=== PATIENT | female | born 1935 | race Caucasian/White ===

== ENCOUNTER 2021-06-19 15:37 | Emergency (ER) | payer MEDICARE, BC ==
[2021-06-19] MEDS ORDERED: Sodium Chloride 0.9% 10 ML Syringe FLUSH PRN (16:15)
--- NOTE | 2021-06-19 16:16 | EDM.PDOC ---
ED HPI GENERAL MEDICAL PROBLEM - General Chief Complaint: Cardiovascular Problem Stated Complaint: shortness of breath Time Seen by Provider: 06/19/21 16:00 Source of Information: Reports: Patient, EMS, Family History Limitations: Reports: No Limitations - History of Present Illness INITIAL COMMENTS - FREE TEXT/NARRATIVE: This patient does have a quite extensive history of congestive heart failure as well as pacemaker and TAVR placement. Over the past couple of weeks she has noticed that she gets more short of breath with physical exertion. She was seen by her primary care provider who discontinued her Lasix and her lisinopril due to some mild elevations in her kidney function. She does have a history congestive heart failure coronary artery disease and TAVR. She had a echocardiogram completed a couple of days prior to her ER visit and was told that she had a mild small pericardial effusion which is new since her surgical placement of her valve in August. She is supposed to have a repeat echocardiogram in 2 to 3 weeks. Tonight she is just getting more short of breath with any physical exertion. She has fatigue. No fever no chills. No cough or congestion. No syncope or palpitations. No pain in her chest. No abdominal pain nausea or vomiting. No fever no chills. No hematuria dysuria urinary frequency. No black tarry stools. The only recent change in her medication has been the discontinuation of her Lasix and her lisinopril. - Related Data Allergies Allergy/AdvReac Type Severity Reaction Status Date / Time No Known Allergies Allergy Verified 06/19/21 15:39 Home Meds: Home Meds Carboxymethylcellulose Sodium [Refresh Tears] 1 drop .ROUTE ASDIRECTED PRN 02/22/17 [History] Insulin Aspart [NovoLOG] 8 unit SQ TIDAC 02/22/17 [History] Metoprolol Tartrate 25 mg PO BID 02/22/17 [History] Simvastatin 1 tab PO BEDTIME 02/22/17 [History] Triamcinolone Acetonide [Triamcinolone Acetonide 0.1% Crm] 1 each TOP BID 02/22/17 [History] Vit A/Vit C/Vit E/Zinc/Copper [Preservision] 1 tab PO DAILY 02/22/17 [History] Acetaminophen [Acetaminophen Extra Strength] 2 tab PO TID MDD 4000 mg 06/19/21 [History] Alendronate Sodium [Fosamax] 1 tab PO Q7D 06/19/21 [History] Aspirin [Aspirin EC] 1 tab PO DAILY 06/19/21 [History] Furosemide [Lasix] 1 tab PO DAILY 06/19/21 [History] Insulin Glargine,Hum.Rec.Anlog [Basaglar Kwikpen U-100] 30 units SQ DAILY 06/19/21 [History] Mirtazapine [Remeron] 0.5 tab PO DAILY 06/19/21 [History] Pantoprazole [ProTONIX] 1 tab PO BID 06/19/21 [History] estradioL [Estradiol] 1 applic TOP DAILY 06/19/21 [History] lisinopriL [Lisinopril] 1 tab PO DAILY 06/19/21 [History] Past Medical History HEENT History: Reports: Glaucoma, Other (See Below) Other HEENT History: dry eyes Cardiovascular History: Reports: Heart Murmur, High Cholesterol, Hypertension, SOB on Exertion Respiratory History: Reports: SOB Gastrointestinal History: Reports: GERD Genitourinary History: Reports: Renal Calculus Musculoskeletal History: Reports: Arthritis, Back Pain, Chronic, Osteoporosis Neurological History: Reports: TIA Other Neuro History: TIA 20 years ago Endocrine/Metabolic History: Reports: Obesity/BMI 30+ Hematologic History: Reports: Anemia, Blood Transfusion(s) Immunologic History: Reports: None Oncologic (Cancer) History: Reports: None Dermatologic History: Reports: Eczema - Past Surgical History HEENT Surgical History: Reports: Cataract Surgery, Other (See Below) Other HEENT Surgeries/Procedures: cataracts OU. Lazer sergery for pressure in eyes Cardiovascular Surgical History: Reports: None Respiratory Surgical History: Reports: None GI Surgical History: Reports: None, Cholecystectomy Female Surgical History: Reports: Other (See Below) Other Female Surgeries/Procedures: all vaginal births x 6 Musculoskeletal Surgical History: Reports: Carpal Tunnel, Knee Replacement Social & Family History - Caffeine Use Caffeine Use: Reports: Soda ED ROS GENERAL - Review of Systems Review Of Systems: Comprehensive ROS is negative, except as noted in HPI. ED EXAM, GENERAL - Physical Exam Exam: See Below Exam Limited By: No Limitations General Appearance: Alert, WD/WN, No Apparent Distress, Obese Eye Exam: Bilateral Eye: EOMI, PERRL Head: Atraumatic, Normocephalic Neck: Normal Inspection, Supple Respiratory/Chest: No Respiratory Distress, No Accessory Muscle Use, Chest Non- Tender, Crackles (Fine bibasilar crackles more on the left than the right.), Rales (Rales on the left). No: Rhonchi, Wheezing, Accessory Muscle Use, Retractions Cardiovascular: Normal Peripheral Pulses, Regular Rate, Rhythm, Other (She has quite distant muffled heart tones. Unable to identify murmur due to the distant muffled heart tones.) Peripheral Pulses: 2+: Radial (L), Radial (R), Posterior Tibial (L), Posterior Tibial (R), Dorsalis Pedis (L), Dorsalis Pedis (R) GI/Abdominal: Normal Bowel Sounds, Soft, Non-Tender (Female) Exam: Deferred Rectal (Female) Exam: Deferred Back Exam: Normal Inspection Extremities: Normal Inspection, Normal Range of Motion, Pedal Edema (1+ pitting edema bilaterally equal) Neurological: Alert, Oriented, Normal Cognition, Normal Gait, No Motor/Sensory Deficits Psychiatric: Normal Affect, Normal Mood Skin Exam: Warm, Dry, Intact, Normal Color Lymphatic: No Adenopathy Course - Vital Signs Last Recorded V/S: Last Vital Signs Temp 98.6 F 06/19/21 16:00 Pulse 79 06/19/21 20:51 Resp 14 06/19/21 20:51 BP 156/75 H 06/19/21 20:51 Pulse Ox 96 06/19/21 20:51 - Orders/Labs/Meds Labs: Laboratory Tests 06/19/21 06/19/21 06/19/21 Range/Units 16:50 16:50 16:50 WBC 10.9 H (4.0-10.2) K/uL RBC 3.86 (3.77-5.09) M/uL Hgb 11.0 L (11.7-15.5) g/dL Hct 35.0 (34.0-46.0) % MCV 90.7 (84.0-98.0) fL MCH 28.5 (28.2-33.3) pg MCHC 31.4 L (31.7-36.0) g/dL RDW 12.9 (11.2-14.1) % Plt Count 373 H (150-350) K/uL Neut % (Auto) 72.7 (45.0-80.0) % Lymph % (Auto) 14.2 (10.0-50.0) % [place] % (Auto) 11.1 (2.0-14.0) % Eos % (Auto) 1.7 (0.0-5.0) % Baso % (Auto) 0.3 (0.0-2.0) % Neut # (Auto) 7.90 H (1.40-7.00) K/uL Lymph # (Auto) 1.54 (0.50-3.50) K/uL [place] # (Auto) 1.21 H (0.00-1.00) K/uL Eos # (Auto) 0.18 (0.00-0.50) K/uL Baso # (Auto) 0.03 (0.00-0.20) K/uL PT 10.7 (9.5-12.0) SEC INR 1.1 APTT 30.5 (24.5-32.8) SEC D-Dimer, Quantitative (0-400) ng/mL Sodium 140 (136-145) mmol/L Potassium 5.1 (3.5-5.1) mmol/L Chloride 103 (98-107) mmol/L Carbon Dioxide 25.4 (21.0-32.0) mmol/L Anion Gap 11.6 (7-15) meq/L BUN 33 H (7-18) mg/dL Creatinine 1.59 H (0.51-1.17) mg/dL Est Cr Clr Drug Dosing 21.01 mL/min Estimated GFR (MDRD) 31 mL/min Glucose 195 H (70-99) mg/dL Lactic Acid (0.4-2.0) mmol/L Calcium 9.2 (8.5-10.1) mg/dL Total Bilirubin 0.6 (0.2-1.0) mg/dL AST 17 (15-37) U/L ALT 15 (12-78) U/L Alkaline Phosphatase 198 H (46-116) IU/L Troponin I High Sens 18 (<=51) ng/L C-Reactive Protein 26.7 H (<=0.9) mg/dL NT-Pro-B Natriuret Pep 2251 H (0-125) pg/mL Total Protein 7.7 (6.4-8.2) g/dL Albumin 2.8 L (3.4-5.0) g/dL Specimen Type Urine Color Urine Appearance Urine pH (5.0-9.0) Ur Specific [place] (1.005-1.030) Urine Protein (NEGATIVE) mg/dL Urine Glucose (UA) (NEGATIVE) mg/dL Urine Ketones (NEGATIVE) mg/dL Urine Occult Blood (NEGATIVE) Urine Nitrite (NEGATIVE) Urine Bilirubin (NEGATIVE) Urine Urobilinogen (0.2-1.0) E.U./dL Ur Leukocyte Esterase (NEGATIVE) U Hyaline Cast (Auto) Urine RBC /HPF Urine WBC /HPF Ur Epithelial Cells /LPF Urine Bacteria (NONE TO FEW) /HPF Granular Casts (Auto) Urine Mucus (NEGATIVE) /LPF 06/19/21 06/19/21 06/19/21 Range/Units 16:50 16:50 18:55 WBC (4.0-10.2) K/uL RBC (3.77-5.09) M/uL Hgb (11.7-15.5) g/dL Hct (34.0-46.0) % MCV (84.0-98.0) fL MCH (28.2-33.3) pg MCHC (31.7-36.0) g/dL RDW (11.2-14.1) % Plt Count (150-350) K/uL Neut % (Auto) (45.0-80.0) % Lymph % (Auto) (10.0-50.0) % [place] % (Auto) (2.0-14.0) % Eos % (Auto) (0.0-5.0) % Baso % (Auto) (0.0-2.0) % Neut # (Auto) (1.40-7.00) K/uL Lymph # (Auto) (0.50-3.50) K/uL [place] # (Auto) (0.00-1.00) K/uL Eos # (Auto) (0.00-0.50) K/uL Baso # (Auto) (0.00-0.20) K/uL PT (9.5-12.0) SEC INR APTT (24.5-32.8) SEC D-Dimer, Quantitative 4590 H (0-400) ng/mL Sodium (136-145) mmol/L Potassium (3.5-5.1) mmol/L Chloride (98-107) mmol/L Carbon Dioxide (21.0-32.0) mmol/L Anion Gap (7-15) meq/L BUN (7-18) mg/dL Creatinine (0.51-1.17) mg/dL Est Cr Clr Drug Dosing mL/min Estimated GFR (MDRD) mL/min Glucose (70-99) mg/dL Lactic Acid 2.0 (0.4-2.0) mmol/L Calcium (8.5-10.1) mg/dL Total Bilirubin (0.2-1.0) mg/dL AST (15-37) U/L ALT (12-78) U/L Alkaline Phosphatase (46-116) IU/L Troponin I High Sens (<=51) ng/L C-Reactive Protein (<=0.9) mg/dL NT-Pro-B Natriuret Pep (0-125) pg/mL Total Protein (6.4-8.2) g/dL Albumin (3.4-5.0) g/dL Specimen Type Urinvoid Urine Color Dark yellow Urine Appearance Slightly cloudy Urine pH 5.5 (5.0-9.0) Ur Specific [place] 1.025 (1.005-1.030) Urine Protein 100 H (NEGATIVE) mg/dL Urine Glucose (UA) Negative (NEGATIVE) mg/dL Urine Ketones Trace H (NEGATIVE) mg/dL Urine Occult Blood Negative (NEGATIVE) Urine Nitrite Negative (NEGATIVE) Urine Bilirubin Small H (NEGATIVE) Urine Urobilinogen 1.0 (0.2-1.0) E.U./dL Ur Leukocyte Esterase Trace H (NEGATIVE) U Hyaline Cast (Auto) Few Urine RBC 0-5 /HPF Urine WBC 5-10 H /HPF Ur Epithelial Cells Moderate H /LPF Urine Bacteria Moderate H (NONE TO FEW) /HPF Granular Casts (Auto) Occasional Urine Mucus Few H (NEGATIVE) /LPF Meds: Medications Discontinued Medications Generic Name Dose Route Start Last Admin Trade Name Freq PRN Reason Stop Dose Admin Furosemide 40 mg 06/19/21 18:36 06/19/21 19:25 Furosemide 40 Mg/4 Ml Vial IVPUSH 06/19/21 18:37 40 mg NOW ONE Administration Iopamidol 100 ml 06/19/21 18:53 06/19/21 19:24 Iopamidol 755 Mg/Ml 100 Ml Bottle IVPUSH 06/19/21 18:54 100 ml ONETIME ONE Administration Sodium Chloride 10 ml 06/19/21 16:15 06/19/21 19:26 Sodium Chloride 0.9% 10 Ml Syringe FLUSH 10 ml ASDIRECTED PRN Administration Keep Vein Open - Radiology Interpretation Free Text/Narrative:: Chest x-ray per radiology shows a left-sided pacer device is noted. Cardiac silhouette is markedly enlarged and increased since the prior exam of 03-17-19. There is pulmonary vascular congestion and mild interstitial thickening which could represent mild interstitial edema. There is retrocardiac opacity which could represent effusion with adjacent atelectasis or infiltrate. No pneumothorax. CT of the chest with contrast PE protocol due to elevated D-dimer per radiology shows left greater than right pleural effusions without complication. Probable atelectasis bilaterally but most prominent in the left lower lobe and lingula. Pneumonia cannot be excluded. Cardiomegaly and prominent pericardial effusion. Enlarged main pulmonary artery consistent with pulmonary arterial hypertension. No pulmonary embolism. Aortic valve replacement status post cholecystectomy. - Re-Assessments/Exams Free Text/Narrative Re-Assessment/Exam: IV was established labs were drawn. EKG was completed with a sinus rhythm with a first-degree AV blocks. No ST elevation or depression when reviewed extemporaneously by my self. Unchanged from previous. Chest x-ray concerning for a rather large cardiomegaly. The rest of it is difficult to determine on the left side due to the prominence of the heart. Radiological review to follow. I did complete a bedside [id number] echocardiogram. She has a rather large impressive pericardial effusion. This appears to be fluid and not blood. I do not see any decompression aspect of the right ventricle with contractions concerning for tamponade. She also has bilateral pleural effusions noted. Aortic TAVR valve in place unremarkable. What I am able to identify of the descending aorta is unremarkable. Reviewing her echocardiogram just a couple of days ago at [facility] it is noted to have small amount of pericardial fluid. I think that this is inconsistent and most likely chronic and it really has unchanged if the pericardial effusion had gotten that large in a couple of days she would be more symptomatic with this. Laboratory evaluation with a CBC at 10.9, hemoglobin 11.0, platelet 373. PT/INR unremarkable. D-dimer elevated at 4590 Creatinine 1.59, BUN 33. Last available creatinine in our system shows 1.1 on 02-22-17. And tahira has a Creat of 1.45 BUn 27 on 06/12/2021. Glucose 159. Liver enzymes unremarkable. Troponin is normal at 18 and she is having symptoms for days. C-reactive protein 26.7. She does have a baseline CRP of about 15 with underlining PMR. proBNP 2251. Urinalysis with a trace amount of leuks negative nitrites trace ketones 100 protein U WBCs 510, urine bacteria moderate. She is completely asymptomatic at this time. We will culture her urine and follow the results. The patient was given 40 mg of Lasix IV push. She did diurese well in the [facility] department. I had a rather long extended conversation with the patient and her family about her concerns of shortness of breath. I think this is multifactorial in nature. She has developed bilateral pleural effusions as well as a large pericardial effusion that does not show any evidence of cardiac tamponade. I believe that this is somewhat chronic appearing pericardial effusion and does not appear to be blood in nature. There are many pathologies that can cause this to include cancers. At this time there is nothing acute and emergent that needs to be completed her vital signs are stable and she is in no distress. We will put her back on her lisinopril with aggressive management for the next couple of days. It is imperative that she follows up with her primary care tomorrow and she needs close following due to this large pericardial effusion. Her and her family are comfortable with this plan and their questions were answered. Departure - Departure Time of Disposition: 20:52 Disposition: Home, Self-Care 01 Clinical Impression: Acute on chronic diastolic (congestive) heart failure, Pericardial effusion, Bilateral pleural effusion CKD (chronic kidney disease) stage 3, GFR 30-59 ml/min Qualifiers: Chronic kidney disease stage 3 subtype: stage 3b (GFR 30-44) Qualified Code(s): N18.32 - Chronic kidney disease, stage 3b Instructions: Shortness of Breath, Adult, [id number], Heart Failure, Self Care, [id number], Pericardial Effusion Referrals: Gabriel Murray MD [Primary Care Provider] - Forms: ED Department Discharge Additional Instructions: Contact your cardiology group tomorrow in [place]. Your images have been sent to [facility] for your CT scan of your chest. Return to the ED if new or worsening symptoms. Restart your lasix, 40mg or 1 tab in the morning and half a tab or 20mg in the early afternoon. Decrease salt intake. Would also consider restarting your Lisinopril but this will be left up to Cardiology.
[2021-06-19 17:13] LABS: PTT,PARTIAL THROMBOPLSTIN TIME 30.5 SEC (24.5-32.8)
[2021-06-19 17:22] LABS: ANION GAP 11.6 meq/L (7-15)
[2021-06-19] MEDS ORDERED: Furosemide 40 MG/4 ML VIAL IVPUSH ONE (18:36)
[2021-06-19] MEDS ORDERED: Iopamidol 755 Mg/ML 100 ML Bottle IVPUSH ONE (18:53)
[2021-06-19 20:51] VITALS: BP 156/75; PULSE 79
== END 2021-06-19 21:15 | disposition home or self-care (01) ==
LOC: LL.ED 15:37
DX: I13.0 Hypertensive heart and chronic kidney disease with heart failure and stage 1 through stage 4 chronic kidney disease, or unspecified chronic kidney disease (principal); N18.30 Chronic kidney disease, stage 3 unspecified; I50.9 Heart failure, unspecified; J90 Pleural effusion, not elsewhere classified; E78.00 Pure hypercholesterolemia, unspecified; K21.9 Gastro-esophageal reflux disease without esophagitis; E66.9 Obesity, unspecified; Z68.35 Body mass index [BMI] 35.0-35.9, adult; Z79.4 Long term (current) use of insulin; Z86.73 Personal history of transient ischemic attack (TIA), and cerebral infarction without residual deficits; Z79.899 Other long term (current) drug therapy
CPT/HCPCS: 36415; 71045; 71275; 80053; 81001; 83605; 83880; 84484; 85025; 85379; 85610; 85730; 86140; 87086; 93005; 96374; 99284; 99285; J1940; Q9967